=== PATIENT | female | born 1985 | race Hispanic/Latino ===

== ENCOUNTER 2025-02-20 19:51 | Emergency (ER) | payer BC ==
[~2025-02-20] VITALS: Ht 167.6 cm; Wt 103.4 kg
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
[2025-02-20] MEDS: OCTYL 2-CYANOACRYLATE 1 EACH TP ONE (21:10)
[2025-02-20] MEDS: acetaMINOPHEN 500 MG TABLET PO ONE (21:10)
[2025-02-20] MEDS: teTANUS/diphthERIA TOXOID [ADULT] 0.5 ML VIAL IM ONE (21:12)
[2025-02-20 21:20] VITALS: BP 131/87; PULSE 70; RESP 16; TEMP 97.9; O2SAT 98
[2025-02-20] MEDS ORDERED: IBUP-2077 PO (21:25)
== END 2025-02-20 21:30 | disposition home or self-care (01) ==
LOC: EDH 19:51
DX: S01.81XA Laceration without foreign body of other part of head, initial encounter (principal); W50.0XXA Accidental hit or strike by another person, initial encounter; Y93.89 Activity, other specified; Y92.89 Other specified places as the place of occurrence of the external cause; Y99.8 Other external cause status
CPT/HCPCS: 12013; 90471; 90714; 99284